=== PATIENT | male | born 2000 | race Caucasian/White ===

== ENCOUNTER 2020-09-04 13:57 | Emergency (ER) | payer SELFPAY ==
[2020-09-04] MEDS ORDERED: IBUPROFEN800 MG PO (15:02)
== END 2020-09-04 15:08 | disposition home or self-care (01) ==
LOC: ER1 13:57
DX: S93.401A Sprain of unspecified ligament of right ankle, initial encounter (principal); Z88.0 Allergy status to penicillin; Z88.1 Allergy status to other antibiotic agents; F17.200 Nicotine dependence, unspecified, uncomplicated; X50.1XXA Overexertion from prolonged static or awkward postures, initial encounter; Y93.67 Activity, basketball; Y92.310 Basketball court as the place of occurrence of the external cause
CPT/HCPCS: 73610; 99283

== ENCOUNTER 2020-10-07 03:53 | Emergency (ER) | payer SELFPAY ==
[~2020-10-07 03:53] MED LIST: IBUPROFEN800 MG PO
[2020-10-07] MEDS ORDERED: ZITHROMAX250 MG PO (04:38)
== END 2020-10-07 04:54 | disposition home or self-care (01) ==
LOC: ER1 03:53
DX: J02.0 Streptococcal pharyngitis (principal)
CPT/HCPCS: 87081; 87880; 96372; 99283; J1100